=== PATIENT | male | born 1960 ===

== ENCOUNTER 2023-04-15 06:30 | Day surgery (SDC) | payer OTHER ==
[~2023-04-15] VITALS: Ht 175.3 cm; Wt 71.2 kg
[~2023-04-15 06:30] MED LIST: DESCOVY 200-251 EACH PO; IRBESARTAN75 MG PO; ISENTRESS HD600 MG PO; TAMS0.4C PO; TOPROL XL50 M1 PO
== END 2023-04-15 15:35 | disposition home or self-care (01) ==
LOC: CIR.AMB 06:30
PROVIDERS: ATTEND Colon & Rectal Surgery
DX: K62.89 Other specified diseases of anus and rectum (principal); K64.8 Other hemorrhoids; K64.2 Third degree hemorrhoids; D12.9 Benign neoplasm of anus and anal canal; K92.1 Melena; I10 Essential (primary) hypertension; Z20.822 Contact with and (suspected) exposure to COVID-19